=== PATIENT | female | born 1995 | race Caucasian/White ===

== ENCOUNTER 2023-10-09 20:51 | Emergency (ER) | payer MEDICAID ==
[~2023-10-09] VITALS: Ht 162.6 cm; Wt 77.1 kg
[2023-10-09 20:55] VITALS: BP 120/83; PULSE 77; RESP 17; TEMP 97.8; O2SAT 100
[2023-10-09 21:44] LABS: APPEARANCE,URINE CLEAR (CLEAR); BILIRUBIN,URINE NEGATIVE (NEGATIVE); BLOOD, URINE NEGATIVE (NEGATIVE); COLOR,URINE YELLOW (YELLOW); LEUKOCYTE ESTERASE ,URINE 2+ (NEGATIVE); NITRITE, URINE NEGATIVE (NEGATIVE); PROTEIN,URINE NEGATIVE (NEGATIVE); UGLUCOSE NEGATIVE (NEGATIVE); UROBILINOGEN,URINE 0.2 EU/dL (0.2 - 1)
[2023-10-09 22:03] LABS: BACTERIA,URINE 1+ /HPF (None Seen); MUCUS,URINE 1+ /LPF (None Seen); RBC,URINE 0-5 /HPF (0-5); SQUAMOUS EPITHELIAL CELL,UR 80-100 /LPF (0-3 (FEW)); TRICHOMONAS,URINE None Seen /HPF (None Seen); WBC,URINE 16-25 (MOD) /HPF (0-5); YEAST,URINE None Seen /HPF (None Seen)
[2023-10-09] MEDS ORDERED: KETOROLAC 30 MG/ML VIAL IM ONE (22:55)
[2023-10-10] MEDS ORDERED: HYDROcodone/APAP 5/325 MG 1 TAB TAB PO ONE (00:15)
[2023-10-10] MEDS ORDERED: NITR100C7 PO (02:09)
[2023-10-10] MEDS ORDERED: NAPR-54 PO (02:09)
[2023-10-10] MEDS ORDERED: ACET-8905 PO (02:09)
[2023-10-10 02:34] VITALS: BP 118/70; PULSE 59; RESP 16; TEMP 97.9; O2SAT 100
== END 2023-10-10 02:34 | disposition home or self-care (01) ==
LOC: MED 20:51
DX: N39.0 Urinary tract infection, site not specified (principal); Z79.899 Other long term (current) drug therapy
CPT/HCPCS: 76856; 81001; 81025; 87086; 93976; 96372; 99285; J1885